=== PATIENT | female | born 1960 | race Caucasian/White ===

== ENCOUNTER → 2018-07-15 | Outpatient (CLI) | payer OTHER ==
--- NOTE | 2018-07-15 07:51 | REP ---
Clinical: Abdominal pain and heartburn. Technique: Real time rucker scale ultrasound examination using curved array transducer. Findings: Liver demonstrates increased echogenicity suggesting fatty infiltration with focal fatty sparing approaching the gallbladder fossa. The pancreas is incompletely evaluated due to interposed bowel gas but visualized portions appear normal. The gallbladder is unremarkable and without gallstones, wall thickening, or pericholecystic fluid. The common bile duct is mildly prominent at 8 mm maximal diameter, but without associated intrahepatic biliary ductal dilatation noted. Right kidney is normal in reniform shape without hydronephrosis and measures 10.1 x 5.8 x 4.2 cm. No ascites in the visualized right upper quadrant. Impression: 1. Hepatosteatosis without focal hepatic lesion. 2. Mild prominence to the common bile duct measuring 8 mm maximal diameter without further gallbladder/biliary ductal abnormalities appreciated by ultrasound. Electronically Signed by Misael Espinoza MD 07/15/2018 07:43 A
== END ==
LOC: M RAD 06:55
PROVIDERS: ATTEND Nurse Practitioner Family
DX: R14.2 Eructation (principal); K21.9 Gastro-esophageal reflux disease without esophagitis; K30 Functional dyspepsia

== ENCOUNTER → 2018-07-31 | Outpatient (CLI) | payer OTHER ==
--- NOTE | 2018-07-31 10:17 | REP ---
Hepatobiliary scan and gallbladder ejection fraction: History: Bloating. Heartburn. Mildly prominent common bile duct, 8 mm by ultrasound. Technique: 6.6 mCi of technetium-99m mebrofenin was injected and sequential anterior images are acquired. 65 minutes after the mebrofenin injection, the patient consumed 8 ounces Ensure and an additional 60 minutes of imaging was acquired. Regions of interest are plotted around the gallbladder. Findings: The initial hepatocellular parenchymal uptake phase is normal and homogeneous. Intra- and extra-hepatic bile ducts and duodenum are labeled by the 10 -minute image. The gallbladder is first labeled on the 15 -minute image. There is normal washout from the liver parenchyma into the gallbladder and small intestine on subsequent images. The gallbladder ejection fraction is 81 %. Values greater than 35 % are considered normal with this technique. Impression: Normal hepatobiliary scan and normal gallbladder ejection fraction. Electronically Signed by Aamir Yanes MD 07/31/2018 10:10 A
== END ==
LOC: M RAD 07:23
PROVIDERS: ATTEND Nurse Practitioner Family
DX: K21.9 Gastro-esophageal reflux disease without esophagitis (principal); K30 Functional dyspepsia
CPT/HCPCS: 78227; A9537; J2805

== ENCOUNTER → 2022-09-29 | Outpatient (REF) | payer OTHER ==
[2022-09-29 17:57] LABS: CREATININE, URINE 38.7 MG/DL; MALB URINE SIEMENS < 3.0 MG/L; MAU/CREAT RATIO 7.7 MCG/MG (0.0-30.0)
== END ==
LOC: M LAB REF 16:39
PROVIDERS: ATTEND Nurse Practitioner Family
DX: E11.65 Type 2 diabetes mellitus with hyperglycemia (principal)

== ENCOUNTER → 2024-09-03 | Outpatient (CLI) | payer MEDICARE ==
[2024-09-03 10:48] LABS: ALBUMIN 4.1 G/DL (3.2-5.2); BILIRUBIN,TOTAL 0.5 MG/DL (0.3-1.2); CALCIUM LEVEL 9.6 MG/DL (8.3-10.6); CREATININE FOR GFR 1.25 MG/DL (0.55-1.30); GLOMERULAR FILTRATION RATE 47.8 (>45); POTASSIUM SERUM 4.3 MMOL/L (3.5-5.1); TOTAL PROTEIN 7.5 G/DL (5.7-8.2)
[2024-09-03 10:50] LABS: FREE T4 1.3 NG/DL (0.89-1.76)
[2024-09-03 10:53] LABS: FREE T3 3.6 PG/ML (2.3-4.2); THYROID STIMULATING HORMONE 1.449 uIU/ML (0.55-4.78)
== END ==
LOC: M PLALAB 08:08
PROVIDERS: ATTEND Registered Nurse
DX: E66.9 Obesity, unspecified (principal); E07.9 Disorder of thyroid, unspecified